=== PATIENT | male | born 1940 | race Caucasian/White ===

== ENCOUNTER → 2017-06-12 | Outpatient (CLI) | payer MEDICARE, OTHER ==
[~2017-06-12] MED LIST: AMIO200T50 PO; APIX5TAB2 PO; ASCO500T20 PO; BUME2TAB3 PO; CALC-250 PO; CARV12.5 PO; ISM60TCR PO; LEVO100T46 PO; LIPITOR PO; MULT-1029 PO; PNT40TEC PO; POTA10CA43 PO; SPIR25TA3 PO; VITA400T9 PO
== END ==
LOC: CARD 09:42
PROVIDERS: ATTEND Internal Medicine Cardiovascular Disease
DX: I48.0 Paroxysmal atrial fibrillation (principal); I25.10 Atherosclerotic heart disease of native coronary artery without angina pectoris; I10 Essential (primary) hypertension; E78.2 Mixed hyperlipidemia; R06.02 Shortness of breath
CPT/HCPCS: 93306

== ENCOUNTER → 2018-05-03 | Outpatient (CLI) | payer MEDICARE, OTHER ==
[~2018-05-03] MED LIST changes: +CATHETER FLUSH 10 ML SYR IV PRN; +REGADENOSON 0.4 MG/5 ML SYR (LEXISCAN) IV ONE
[2018-05-03 09:23] VITALS: BP 119/80
[2018-05-03 09:25] VITALS: BP 118/87
[2018-05-03 10:07] LABS: ALANINE AMINOTRANSFERASE 17 U/L (0-55); ALBUMIN 3.8 GM/DL (3.2-4.5); ALKALINE PHOSPHATASE 64 U/L (40-136); BILIRUBIN,TOTAL 1.5 MG/DL (0.1-1.0); BUN/CREATININE RATIO 15; CALCIUM 9.7 MG/DL (8.5-10.1); CARBON DIOXIDE 23 MMOL/L (21-32); CHLORIDE 104 MMOL/L (98-107); CHOLESTEROL 115 MG/DL (< 200); CREATININE SERUM 1.06 MG/DL (0.60-1.30); GFR ESTIMATED > 60; GLUCOSE 113 MG/DL (70-105); HDL CHOLESTEROL 25 MG/DL (40-60); POTASSIUM 4.8 MMOL/L (3.6-5.0); SODIUM 136 MMOL/L (135-145); TOTAL PROTEIN 7.6 GM/DL (6.4-8.2); TRIGLYCERIDES 58 MG/DL (<150); VLDL CHOLESTEROL 12 MG/DL (5-40)
--- NOTE | 2018-05-03 22:45 | STRESS TEST ---
DATE OF SERVICE: 05/03/2018 LEXISCAN MYOVIEW STRESS TEST REPORT REFERRING PHYSICIAN: Dr. Mayco Stephens DO and Dr. Madi Nguyễn. Baseline heart rate is 80, baseline blood pressure 119/80. Baseline EKG is sinus rhythm with no ischemic changes. SUMMARY: The patient was injected with 10.96 mCi of technetium-99 Myoview and the resting images were obtained. Then, the patient received 0.4 mg of Lexiscan followed by 29.9 mCi of technetium-99 Myoview. Throughout the test, there were no EKG changes. The resting and stress images were reviewed and compared in the short axis, horizontal long axis, and vertical long axis views. Review of the images showed good radiotracer uptake with diaphragmatic attenuation. No significant ischemia or infarction was seen. SSS is 0. TID value 1.06. On the gated images, the left ventricle was calculated to be 68%. CONCLUSION: 1. The patient tolerated Lexiscan well. 2. Typical male pattern with no significant ischemia or infarction on SPECT images. 3. Normal left ventricular size with normal contractility. Calculated ejection fraction 68%. Job ID: [id number] DocumentID: [id number] Dictated Date: 05/03/2018 18:13:11 Furniture Fabricator Date: 05/03/2018 22:44:54 Dictated By: MAHENDRA COKER MD
== END ==
LOC: CARD 07:18
PROVIDERS: ATTEND Physician Assistant
DX: I48.91 Unspecified atrial fibrillation (principal); I25.10 Atherosclerotic heart disease of native coronary artery without angina pectoris; I11.0 Hypertensive heart disease with heart failure; I50.9 Heart failure, unspecified; E78.5 Hyperlipidemia, unspecified
CPT/HCPCS: 36415; 78452; 80053; 80061; 93017

== ENCOUNTER → 2019-05-26 | Outpatient (CLI) | payer MEDICARE, OTHER ==
[~2019-05-26] MED LIST changes: -CATHETER FLUSH 10 ML SYR IV PRN; -REGADENOSON 0.4 MG/5 ML SYR (LEXISCAN) IV ONE
--- NOTE | 2019-05-26 12:35 | Diagnostic Imaging Report ---
INDICATION: SOB ON EXERTION COMPARISON: 08/29/2014 PA and lateral views of the chest were obtained. FINDINGS: There is mild cardiomegaly. Pulmonary vascularity is at the upper limits of normal. There has been development of moderate amount of right pleural fluid with subjacent atelectasis and/or pneumonitis. There is also mild left basilar atelectasis. Right anterior chest wall pacemaker device is in stable position. There is no pneumothorax. IMPRESSION: Basilar atelectasis with development of moderate right pleural effusion. Dictated by: Dictated on workstation # [id number]
== END ==
LOC: RAD 11:31
PROVIDERS: ATTEND Internal Medicine Cardiovascular Disease
DX: I36.1 Nonrheumatic tricuspid (valve) insufficiency (principal); I51.7 Cardiomegaly; J98.11 Atelectasis; J90 Pleural effusion, not elsewhere classified; I49.5 Sick sinus syndrome; I48.0 Paroxysmal atrial fibrillation; E78.5 Hyperlipidemia, unspecified; I10 Essential (primary) hypertension
CPT/HCPCS: 71046; 93306

== ENCOUNTER → 2019-05-30 | Outpatient (CLI) | payer MEDICARE, OTHER ==
[2019-05-30 15:10] LABS: BUN/CREATININE RATIO 16; GFR ESTIMATED > 60
== END ==
LOC: LAB 14:30
PROVIDERS: ATTEND Nurse Practitioner Family
DX: J30.9 Allergic rhinitis, unspecified (principal); J91.8 Pleural effusion in other conditions classified elsewhere
CPT/HCPCS: 36415; 82565; 83880; 84520

== ENCOUNTER → 2019-06-07 | Outpatient (CLI) | payer MEDICARE, OTHER ==
--- NOTE | 2019-06-07 15:54 | Diagnostic Imaging Report ---
INDICATION: Status post thoracentesis. TIME OF EXAM: 03:21 p.m. Correlation is made with prior chest from 05/26/2019. FINDINGS: Heart size is stable. Right-sided cardiac pacemaker is in place. There is a [id number] right pleural effusion. No pneumothorax is seen status post thoracentesis. Left lung is clear. IMPRESSION: There has been some reduction in right-sided pleural effusion, status post thoracentesis. No pneumothorax is identified. Dictated by: Dictated on workstation # [id number]
[2019-06-07 16:07] LABS: GLUCOSE,BODY FLUID 108 MG/DL; LDH,BODY FLUID 82 U/L; TOTAL PROTEIN,BODY FLUID 5.4 G/DL
[2019-06-07 16:17] LABS: BODY FLUID SOURCE PLEURAL
[2019-06-07 16:18] LABS: BODY FLUID APPEARENCE MKD BLDY; BODY FLUID COLOR RED
--- NOTE | 2019-06-07 16:29 | Diagnostic Imaging Report ---
INDICATION: Pleural effusion. TECHNIQUE: The patient was brought to the procedure room and placed on the bed in a sitting upright position. Ultrasound imaging over the right thorax was performed to evaluate for an appropriate entry site. The right posterior thorax was then prepped and draped in the usual sterile fashion. A small amount of 1% lidocaine was utilized for local anesthesia. A thoracentesis catheter was advanced into the right posterior pleural space. A total of 1900 mL of serosanguineous fluid was removed. The catheter was removed and hemostasis was obtained. The patient tolerated the procedure well was sent for a post procedure chest radiograph in satisfactory condition. IMPRESSION: Successful ultrasound-guided right thoracentesis obtaining 1900 mL of fluid. Dictated by: Dictated on workstation # [id number]
[2019-06-07 18:34] LABS: BODY FLUID WBC TOTAL COUNT 575 /uL
[2019-06-07 18:35] LABS: BODY FLUID RBC COUNT 40250 /uL
[2019-06-07 19:00] LABS: BF OTHER CELLS 23 %; LYMPHOCYTES,BODY FLUID 61 %
== END ==
LOC: RAD 14:07
PROVIDERS: ATTEND Nurse Practitioner Family
DX: J30.9 Allergic rhinitis, unspecified (principal); J91.8 Pleural effusion in other conditions classified elsewhere
CPT/HCPCS: 32555; 71046; 82945; 83615; 84157; 87070; 87075; 87205; 89051

== ENCOUNTER → 2019-06-07 | Outpatient (CLI) | payer MEDICARE, OTHER ==
[~2019-06-07] MED LIST changes: +CATHETER FLUSH 10 ML SYR IV PRN; +HOLD METFORMIN - RECEIVED CONTRAST 20 ML VIAL IV SCH; +IOHEXOL 350 MG/ML 100 ML (OMNIPAQUE 350) VIAL IV ONE; +NS 100 ML (IVPB) BAG IV ONE
[2019-06-07 11:08] LABS: CREATININE SERUM 1.29 MG/DL (0.60-1.30)
--- NOTE | 2019-06-07 12:11 | Diagnostic Imaging Report ---
EXAMINATION: CT Chest with intravenous contrast. TECHNIQUE: Multiple contiguous axial images were obtained through the chest after the uneventful administration of intravenous contrast. All CT scans use one or more of the following dose optimizing techniques: automated exposure control, MA and/or KvP adjustment based on a patient size and exam type, or iterative reconstruction. HISTORY: PLEURAL EFFUSION IN OTHER CONDITIONS CLASSIFIED FINDINGS: No comparison available. There is a moderate to large right pleural effusion with collapse of the majority of the right middle and lower lobes. No pneumothorax is seen. No edema. No left pleural effusion or pneumothorax. There is gynecomastia. Pacemaker leads are present. Heart size is normal. No pericardial effusion. Aorta is normal in caliber. There is no axillary, supraclavicular or mediastinal lymphadenopathy. Limited views of the upper abdomen are unremarkable. There are no suspicious osseus lesions. IMPRESSION: 1. Moderate to large right pleural effusion with collapse of the majority of the right middle and lower lobes. Dictated by: Dictated on workstation # [id number]
== END ==
LOC: RAD 10:35
PROVIDERS: ATTEND Nurse Practitioner Family
DX: J30.9 Allergic rhinitis, unspecified (principal); J91.8 Pleural effusion in other conditions classified elsewhere; J98.19 Other pulmonary collapse; Z95.0 Presence of cardiac pacemaker
CPT/HCPCS: 36415; 71260; 82565; 83880; 84520

== ENCOUNTER → 2019-07-13 | Outpatient (CLI) | payer MEDICARE, OTHER ==
[~2019-07-13] MED LIST changes: -CATHETER FLUSH 10 ML SYR IV PRN; -HOLD METFORMIN - RECEIVED CONTRAST 20 ML VIAL IV SCH; -IOHEXOL 350 MG/ML 100 ML (OMNIPAQUE 350) VIAL IV ONE; -NS 100 ML (IVPB) BAG IV ONE; +RT-ALBUTEROL SULF 2.5 MG/3 ML PRE-MIX VIAL INH ONE
[2019-07-13 13:52] LABS: ABG BASE EXCESS 2.4 MMOL/L (-2.5-2.5); ABG OXYGEN SATURATION 94 % (94-100); ABG PCO2 43 MMHG (35-45); ABG PH 7.41 (7.37-7.43); ABG PO2 73 MMHG (79-93); ABG TCO2 28.1 MMOL/L (21.0-31.0); ALLENS TEST YES-POS; INSPIRED O2 ROOM AIR; PATIENT TEMP 36.7; VENTILATOR NO
== END ==
LOC: RT 13:06
PROVIDERS: ATTEND Nurse Practitioner Family
DX: J30.9 Allergic rhinitis, unspecified (principal); J91.8 Pleural effusion in other conditions classified elsewhere
CPT/HCPCS: 36600; 82805; 94060; 94726; 94729

== ENCOUNTER → 2021-08-28 | Outpatient (CLI) | payer MEDICARE ==
[~2021-08-28] VITALS: Ht 170 cm; Wt 109.0 kg
[~2021-08-28] MED LIST changes: +REGADENOSON 0.4 MG/5 ML SYR (LEXISCAN) IV ONE; -RT-ALBUTEROL SULF 2.5 MG/3 ML PRE-MIX VIAL INH ONE
[2021-08-28] MEDS: CATHETER FLUSH 10 ML SYR IV PRN ×2 (12:05→13:43)
[2021-08-28 13:38] VITALS: BP 124/76
--- NOTE | 2021-08-28 15:36 | Cardiology Stress Test Report ---
Stress Test Report Date of Procedure/Referring: Date of Procedure: Aug 28, 2021 PCP Nila Encarnacion Admitting Physician Mayco Stephens DO Indications: CAD Baseline Heart Rate: 82 Baseline Blood Pressure: Blood Pressure Systolic: 124 Blood Pressure Diastolic: 76 Baseline Vitals Vital Signs Date Time Temp Pulse Resp B/P (MAP) Pulse Ox O2 Delivery O2 Flow Rate FiO2 08/28/21 13:38 76 16 124/76 (92) 93 Room Air Baseline EKG: Baseline EKG: NSR Summary After explaining the procedure to the patient, he signed a consent and then brought to the stress nuclear laboratory. Patient received 0.4 mg Lexiscan for stress test, ECG, heart rate and blood pressure were monitored continuously. Resting and stress dose of radio tracer w ere injected, imaging was acquired and reviewed in short axis, horizontal long axis and vertical long axis views. TID: 1.03 SSS: 3 SDS: 1 EF: 57 1. Patient tolerated Lexiscan well 2. No significant ischemia or infarction on SPECT images 3. Normal left ventricular size, EF 57% MAHENDRA COKER MD Aug 28, 2021 15:36
== END ==
LOC: CARD 12:15
PROVIDERS: ATTEND Nurse Practitioner
DX: Z01.810 Encounter for preprocedural cardiovascular examination (principal); I25.10 Atherosclerotic heart disease of native coronary artery without angina pectoris
CPT/HCPCS: 78452; 93017; A9502